=== PATIENT | female | born 1970 | race Caucasian/White ===

== ENCOUNTER 2017-07-11 17:54 | Emergency (ER) | payer SELFPAY ==
[2017-07-11] MEDS ORDERED: IPRATROPIUM/ALBUTEROL 0.5-2.5 MG/3 ML AMPUL NEB ONE (18:52)
[2017-07-11] MEDS ORDERED: METHYLPREDNISOLONE INJ 125 MG/2 ML SDV IM ONE (18:52)
--- NOTE | 2017-07-11 18:59 | ER Document Report ---
ED Respiratory Problem - General Chief Complaint: Cough, congestion, dizzy Stated Complaint: SHORTNESS OF BREATH Time Seen by Provider: 07/11/17 18:44 Mode of Arrival: Ambulatory Information source: Patient Notes: 46-year-old female presents to ED for cough congestion shortness of breath that is progressively gotten worse over the last month. She states she has been using her inhaler and nebulizer but does not have any steroids at home and the nebulizer inhalers are not helping. She states she has developed chest pain over the last week with feeling of dizziness feel like she is going to blackout. She states she has bronchitis frequently she does have a heart murmur. She states she had her heart has felt like it is jumping in throbbing and flip flopping like it does when she has anxiety attacks but she has not had anxiety. She speaks in clear complete sentences while she is telling me she cannot speak. Her lungs are minimally just managed with very faint wheezes. She does have good breath sounds. TRAVEL OUTSIDE OF THE [place] IN LAST 30 DAYS: No - HPI Patient complains to provider of: Short of breath Onset: Other - Month Duration: Continuous Initiating Event: URI Quality of pain: Achy, Sharp Severity: Severe Pain Level: 5 Context: Hx asthma, Smoker Short of Breath: Mild Chest pain/discomfort: Tightness Cough: Nonproductive Sputum amount: None At home treatment: Bronchodilators Associated symptoms: Chest pain/discomfort, Congestion, Cough, Runny nose, Sinus pain/pressure, Short of breath Similar symptoms previously: Yes - Related Data Allergies/Adverse Reactions: No Known Allergies Allergy (Verified 05/15/14 03:00) Past Medical History - General Information source: Patient - Social History Smoking Status: Current Some Day Smoker Cigarette use (# per day): Yes Chew tobacco use (# tins/day): No Frequency of alcohol use: Occasional Drug Abuse: Marijuana Lives with: Family Family History: Reviewed & Not Pertinent Patient has suicidal ideation: No Patient has homicidal ideation: No - Past Medical History Cardiac Medical History: Reports: None Pulmonary Medical History: Reports: Hx Asthma, Hx Bronchitis EENT Medical History: Reports: None Neurological Medical History: Reports: None Endocrine Medical History: Reports: Hx Hypothyroidism Renal/ Medical History: Reports: None Malignancy Medical History: Reports: None GI Medical History: Reports: Hx Ulcer - hypothyroidism Musculoskeltal Medical History: Reports Hx Musculoskeletal Deformity, Reports Hx Musculoskeletal Trauma Skin Medical History: Reports None Psychiatric Medical History: Reports: None Traumatic Medical History: Reports: None Infectious Medical History: Reports: None Past Surgical History: Reports: Hx Tubal Ligation - Immunizations Hx Diphtheria, Pertussis, Tetanus Vaccination: Yes Review of Systems - Review of Systems Constitutional: No symptoms reported EENT: Nose discharge, Sinus discharge Cardiovascular: No symptoms reported Respiratory: Cough, Short of breath Gastrointestinal: No symptoms reported Genitourinary: No symptoms reported Female Genitourinary: No symptoms reported Musculoskeletal: No symptoms reported Skin: No symptoms reported Hematologic/Lymphatic: No symptoms reported Neurological/Psychological: No symptoms reported -: Yes All other systems reviewed and negative Physical Exam - Vital signs Vitals: Temp Pulse Resp BP Pulse Ox 98.2 F 76 18 149/101 H 98 07/11/17 17:57 07/11/17 17:57 07/11/17 17:57 07/11/17 17:57 07/11/17 17:57 Interpretation: Normal - General General appearance: Appears well, Alert - HEENT Head: Normocephalic, Atraumatic Eyes: Normal Pupils: PERRL Ears: Normal External canal: Normal Tympanic membrane: Normal Sinus: Normal Nasal: Purulent discharge, Swelling Mouth/Lips: Normal Pharynx: Post nasal drainage Neck: Normal - Respiratory Respiratory status: No respiratory distress Chest status: Nontender Breath sounds: Decreased air movement, Wheezing Chest palpation: Normal - Cardiovascular Rhythm: Regular Heart sounds: Normal auscultation Murmur: No - Abdominal Inspection: Normal Distension: No distension Bowel sounds: Normal Tenderness: Nontender Organomegaly: No organomegaly - Back Back: Normal, Nontender - Extremities General upper extremity: Normal inspection, Nontender, Normal color, Normal ROM , Normal temperature General lower extremity: Normal inspection, Nontender, Normal color, Normal ROM , Normal temperature, Normal weight bearing. No: Medina's sign - Neurological Neuro grossly intact: Yes Cognition: Normal Orientation: AAOx4 [place] Coma Scale Eye Opening: Spontaneous [place] Coma Scale Verbal: Oriented [place] Coma Scale Motor: Obeys Commands [place] Coma Scale Total: 15 Speech: Normal Motor strength normal: LUE, RUE, LLE, RLE Sensory: Normal - Psychological Associated symptoms: Normal affect, Normal mood - Skin Skin Temperature: Warm Skin Moisture: Dry Skin Color: Normal Course - Re-evaluation Re-evalutation: 07/11/17 19:51 When I went to reassess the patient to see if she was ready to go home, she stated she was just getting her first nebulized treatment and was getting her steroid shot at that time. Will reassess patient in 30 minutes. 07/11/17 20:19 Lungs much clearer at this time. Patient able to take deep breath states she feels much better at this time. She states she is ready to go home and go to sleep. I suggested patient take some Benadryl to help her to go to sleep due to the steroids and breathing treatments. Patient to follow-up with her primary doctor. Patient will be discharged home with prescription for prednisone Patient instructed to continue taking her nebulizer and inhaler treatments as ordered. - Vital Signs Vital signs: Temp Pulse Resp BP Pulse Ox 98.1 F 74 18 118/68 97 07/11/17 20:26 07/11/17 20:26 07/11/17 20:26 07/11/17 20:26 07/11/17 20:26 - Diagnostic Test Radiology reviewed: Image reviewed, Reports reviewed Discharge - Discharge Clinical Impression: Bronchitis Upper respiratory infection Qualifiers: URI type: unspecified URI Qualified Code(s): J06.9 - Acute upper respiratory infection, unspecified Condition: Stable Disposition: HOME, SELF-CARE Instructions: Family Physicians / Practices Additional Instructions: UPPER RESPIRATORY ILLNESS: You have a viral infection of the respiratory passages -- a "cold." This common infection causes nasal congestion, drainage, and often sore throat and cough. It is highly contagious. The disease usually lasts about 10 to 14 days. There is no "cure" for the viral infection -- it must run its course. If there is a complication, such as bacterial infection in the nose, sinuses, middle ear, or bronchial tubes, antibiotics may be required. The antibiotics won't affect the virus. Drink plenty of fluids. A humidifier may help. An expectorant medication or decongestant may make you more comfortable. Use acetaminophen or ibuprofen for fever or aches. See the doctor if fever persists over two days, if there is any significant worsening of your symptoms, or if you simply fail to improve as expected. BRONCHOSPASM: You have tightness in the bronchial tubes, called bronchospasm. This often occurs with bronchial infections. Allergies, inhaled chemicals, and polluted or cold air can also provoke bronchospasm. It's more likely in patients with asthma in the family. Emergency treatment of bronchospasm may include adrenaline shots or bronchodilator aerosol. You may feel lightheaded and have a rapid pulse for an hour or two. Rest and get plenty of fluids. At home, we'll treat you with a bronchodilator inhaler. Antibiotics and corticosteroids may be required for some patients. Until you recover, avoid chemical fumes, dusts, pollens, and exercising in very cold or dry air. If you smoke, stop now!! If you develop a fever, increased wheezing, chest pain, or severe shortness of breath, you should contact the doctor immediately. INHALED BRONCHODILATORS: You have received a treatment of and/or prescription for an inhaled bronchodilator -- a medication which stimulates the airways in the lung to dilate. This improves the flow of air in asthma, bronchitis, and emphysema. These medicines have some similarity to adrenaline, and can cause similar side effects: shakiness, racing heart, and a sense of nervousness. These side effects decrease with time. Contact your doctor if these side effects are severe. Do not over-use the medicine. Too-frequent use of the inhaler may make it ineffective. Call your doctor if the inhaler is not controlling your symptoms at the prescribed doses. STEROID MEDICATION: You have been given an injection of or oral medicine of the cortisone/ steroid class. This medication is used to control inflammation or allergy. Mehul t is usually only given for a short period of time, until the acute process subsides. There are usually no side effects from short-term use of cortisone-like medications. Some persons feel an increased sense of well-being and are not sleepy at bedtime. Long-term use of cortisone medications is best avoided, unless required for a severe condition. If your condition does not remit, or relapses after the course of corticosteroid medication, you should consult your physician. USE OF ACETAMINOPHEN (Tylenol): Acetaminophen may be taken for pain relief or fever control. It's much safer than aspirin, offering a wider range of "safe" dosages. It is safe during . Some brand names are Tylenol, Panadol, Datril, Anacin 3, Tempra, and Liquiprin. Acetaminophen can be repeated every four hours. The following are maximum recommended dosages: >89 pounds or adults 650 mg to 900 mg Acetaminophen can be repeated every four hours. Maximum dose not to exceed 4000 mg a day. SMOKING: If you smoke, you should stop smoking. The tar and chemicals in cigarette smoke are harmful. Smoking has been shown to cause: emphysema chronic bronchitis lung cancer mouth and throat cancer stomach and pancreas cancer premature aging defects In addition, smoking increases ear and lung infections in children of smokers. FOLLOW-UP CARE: If you have been referred to a physician for follow-up care, call the physician s office for an appointment as you were instructed or within the next two days. If you experience worsening or a significant change in your symptoms, notify the physician immediately or return to the Emergency Department at any time for re-evaluation. Prescriptions: Prednisone [Sterapred Ds] 1 pkg PO ASDIR PRN 12 Days [email or web address] PRN Reason: Forms: Elevated Blood Pressure, Smoking Cessation Education, Return to Work
--- NOTE | 2017-07-11 19:40 | RADIOLOGY REPORT (SQ) ---
EXAM DESCRIPTION: CHEST PA/LAT COMPLETED DATE/TIME: 07/11/2017 7:19 pm REASON FOR STUDY: cough congestion COMPARISON: January 2014 EXAM PARAMETERS: NUMBER OF VIEWS: two views TECHNIQUE: Digital Frontal and Lateral radiographic views of the chest acquired. RADIATION DOSE: NA LIMITATIONS: none FINDINGS: LUNGS AND PLEURA: No opacities, masses or pneumothorax. No pleural effusion. MEDIASTINUM AND HILAR STRUCTURES: No masses or contour abnormalities. HEART AND VASCULAR STRUCTURES: Heart normal size. No evidence for failure. BONES: No acute findings. HARDWARE: None in the chest. OTHER: No other significant finding. IMPRESSION: NO SIGNIFICANT RADIOGRAPHIC FINDING IN THE CHEST. TECHNICAL DOCUMENTATION: JOB ID: [id number] [employer]- All Rights Reserved
[2017-07-11] MEDS: ALBUTEROL SULFATE 0.083% NEB 2.5 MG/3 ML AMPUL NEB SCH ×2 (19:51→20:05)
[2017-07-11 20:27] VITALS: BP 118/68
--- NOTE | 2017-07-11 23:22 | EKG REPORT ---
SEVERITY:- BORDERLINE ECG - SINUS RHYTHM CONSIDER ANTERIOR INFARCT : Confirmed by: Chasity Lo 11-Jul-2017 23:21:57
== END 2017-07-11 20:37 | disposition home or self-care (01) ==
LOC: ER 17:54
DX: J40 Bronchitis, not specified as acute or chronic (principal); J06.9 Acute upper respiratory infection, unspecified; F17.210 Nicotine dependence, cigarettes, uncomplicated; E03.9 Hypothyroidism, unspecified; Z98.51 Tubal ligation status
CPT/HCPCS: 93005; 94640 ×2; 99285; 96374; 71020; 93010; J2930; J7620

== ENCOUNTER 2017-11-07 18:30 | Emergency (ER) | payer SELFPAY ==
[2017-11-07] MEDS ORDERED: IBUPROFEN 600 MG TABLET PO ONE (20:33)
--- NOTE | 2017-11-07 20:35 | ER Document Report ---
ED Skin Rash/Insect Bite/Abscs - General Chief Complaint: Abscess Stated Complaint: ABSCESS/GROIN AREA Time Seen by Provider: 11/07/17 20:25 Mode of Arrival: Ambulatory Information source: Patient TRAVEL OUTSIDE OF THE [place] IN LAST 30 DAYS: No - HPI Patient complains to provider of: Tender/swollen area Onset: Other - 2 DAYS Quality of pain: Sharp Notes: Patient is here with complaints of possible abscess to the left groin area. She states been present for the last 2 days and is getting larger and more painful. She has a prior history of abscess. This feels similar to prior abscess she has had. She denies fevers. She denies vomiting or diarrhea. She states that she has had some mild nausea. She denies any known history of diabetes. She denies any other rashes. She denies any chest pain or difficulty breathing. No abdominal pain. She has no other significant complaints at this time. - Related Data Allergies/Adverse Reactions: No Known Allergies Allergy (Verified 11/07/17 18:34) Past Medical History - Social History Smoking Status: Current Every Day Smoker Family History: Reviewed & Not Pertinent Pulmonary Medical History: Reports: Hx Asthma, Hx Bronchitis Endocrine Medical History: Reports: Hx Hypothyroidism Renal/ Medical History: Denies: Hx Peritoneal Dialysis GI Medical History: Reports: Hx Ulcer - hypothyroidism Musculoskeltal Medical History: Reports Hx Musculoskeletal Deformity, Reports Hx Musculoskeletal Trauma Past Surgical History: Reports: Hx Tubal Ligation - Immunizations Hx Diphtheria, Pertussis, Tetanus Vaccination: Yes Review of Systems - Review of Systems -: Yes All other systems reviewed and negative Physical Exam - Vital signs Vitals: Temp Pulse Resp BP Pulse Ox 98.7 F 59 L 20 128/65 H 97 11/07/17 19:00 11/07/17 19:00 11/07/17 19:00 11/07/17 19:00 11/07/17 19:00 - Notes Notes: GENERAL: alert, cooperative, nontoxic, no distress. HEAD: normocephalic, atraumatic EYES: conjunctiva pink without discharge, no external redness or swelling. EARS: no external swelling, no external redness NOSE: atraumatic, no external swelling MOUTH/THROAT: mucous membranes moist and pink NECK: soft, supple, full range of motion, no meningismus. CHEST: no distress, lungs clear and equal throughout. No wheezing, rales, rhonchi. CARDIAC: regular rate and rhythm, no murmur, normal capillary refill, normal pulses. BACK: full range of motion, no CVA tenderness. EXTREMITIES: full range of motion of all extremities. No redness, no swelling. NEURO: alert and oriented 3, no focal deficits, full range of motion of all extremities. PYSCH: appropriate mood, affect. Patient is cooperative. SKIN: pink, warm, dry, no rash. 3 cm fluctuant abscess to the left groin just between the thigh and the labia majora. This is not a labial abscess. Mild overlying redness. Tenderness to palpation. No drainage. No significant surrounding erythema. Course - Re-evaluation Re-evalutation: 11/07/17 21:21 The patient is nontoxic appearing with stable vitals. The patient is here with an abscess to the left inguinal area for the last 2 days. No diabetes, no fever. There is a fluctuant abscess in this area with no significant redness or cellulitis. They will perform an I&D with success. Patient tolerated this well. She will be discharged home with a prescription for Bactrim. Apply warm compresses to sore area. Follow-up for increasing pain, fever, redness, persistent vomiting or for any further concerns. The patient declined wanting a prescription for pain medication, she states she will take Tylenol or Motrin if she needs it. The patient is noted to have elevated blood pressure during today's emergency department visit. The patient was informed of this finding. The patient was instructed that this may be related to pre-hypertension and requires further evaluation with a primary care provider. The patient has no hypertensive symptoms at this time. The patient's emergency department workup and current diagnosis were explained to the patient and or family. Follow-up instructions were provided. Medications if prescribed were discussed. Instructions for when to return to the emergency department including specific worrisome symptoms were discussed with the patient and/or family. - Vital Signs Vital signs: Temp Pulse Resp BP Pulse Ox 98.7 F 59 L 20 128/65 H 97 11/07/17 19:00 11/07/17 19:00 11/07/17 19:00 11/07/17 19:00 11/07/17 19:00 Procedures - Incision and Drainage Left groin Type: Simple Anesthetic type: 1% Lidocaine Blade size: 11 I&D procedure: Shurclens applied, Sterile dressing applied, Other - Loculations broke up with hemostats Incision Method: Incision made by scalpel Amount/type of drainage: Moderate amount of purulent/bloody drainage. Discharge - Discharge Clinical Impression: Abscess of groin, left Condition: Stable Disposition: HOME, SELF-CARE Instructions: Abscess ([facility]), Trimethoprim-Sulfa ([facility]), Post Incision and Drainage Additional Instructions: Take medications as prescribed. Take Tylenol and Motrin if needed for pain. Apply warm compresses or soak in warm water frequently. Follow-up if not improving in the next 2 days, sooner for increasing pain, fever, redness, drainage, persistent vomiting, or for any further concerns. Your blood pressure was elevated during today's visit. Have this rechecked with your doctor. Prescriptions: Sulfamethoxazole/Trimethoprim [Bactrim Ds Tablet] 1 each PO BID #20 tablet Forms: Elevated Blood Pressure, Smoking Cessation Education Referrals: [facility] [Provider Group] - Follow up as needed
[2017-11-07 21:45] VITALS: BP 115/77
== END 2017-11-07 21:42 | disposition home or self-care (01) ==
LOC: ER 18:30
PROC: 0H97XZZ Drainage of Abdomen Skin, External Approach (ICD-10-PCS; principal; 2017-11-07)
DX: L02.214 Cutaneous abscess of groin (principal); F17.200 Nicotine dependence, unspecified, uncomplicated
CPT/HCPCS: 99283

== ENCOUNTER 2018-08-07 16:46 | Emergency (ER) | payer SELFPAY ==
[2018-08-07 17:03] VITALS: BP 142/86
[2018-08-07] MEDS ORDERED: IBUPROFEN 800 MG TABLET PO ONE (18:21)
[2018-08-07] MEDS ORDERED: DEXAMETHASONE 4 MG TABLET PO ONE (18:21)
--- NOTE | 2018-08-07 18:21 | ER Document Report ---
ED Neck/Back Problem - General Chief Complaint: Low Back Pain Stated Complaint: BACK/NECK/SHOULDER PAIN Time Seen by Provider: 08/07/18 18:01 Mode of Arrival: Ambulatory Information source: Patient Notes: 47-year-old female presented to ED for complaint of neck and back pain that worsened last night. She states she has a history of problems with her neck and back. She states she was seen by sports medicine and told that she needed MRIs. Patient states she bent over yesterday and now it is painful to sit or stand or lay down comfortably. Patient is alert and oriented respirations regular and unlabored speaking in full sentences. Patient states she has a long history of chronic pain to her back and shoulders. Patient states she has not fallen and she has not been seen by eye doctor except for sports medicine in 10 years. Patient states she has frequent numbness to her legs but she is not had any change in bowel or bladder function. TRAVEL OUTSIDE OF THE [place] IN LAST 30 DAYS: No - Related Data Allergies/Adverse Reactions: No Known Allergies Allergy (Verified 11/07/17 18:34) Past Medical History - General Information source: Patient - Social History Smoking Status: Current Every Day Smoker Cigarette use (# per day): Yes - Pack per day Chew tobacco use (# tins/day): No Smoking Education Provided: Yes - 4 minutes Frequency of alcohol use: Social Drug Abuse: Marijuana Family History: Reviewed & Not Pertinent Patient has suicidal ideation: No Patient has homicidal ideation: No - Past Medical History Cardiac Medical History: Reports: None Pulmonary Medical History: Reports: Hx Asthma, Hx Bronchitis EENT Medical History: Reports: None Neurological Medical History: Reports: None Endocrine Medical History: Reports: Hx Hypothyroidism Renal/ Medical History: Reports: None Malignancy Medical History: Reports: None GI Medical History: Reports: Hx Ulcer - hypothyroidism Musculoskeletal Medical History: Reports Hx Arthritis, Reports Hx Musculoskeletal Deformity, Reports Hx Musculoskeletal Trauma Skin Medical History: Reports None Psychiatric Medical History: Reports: None Infectious Medical History: Reports: None Past Surgical History: Reports: Hx Tubal Ligation - Immunizations Hx Diphtheria, Pertussis, Tetanus Vaccination: No Review of Systems - Review of Systems Constitutional: No symptoms reported EENT: No symptoms reported Cardiovascular: No symptoms reported Respiratory: No symptoms reported Gastrointestinal: No symptoms reported Genitourinary: No symptoms reported Female Genitourinary: No symptoms reported Musculoskeletal: Back pain, Joint pain, Muscle pain, Muscle stiffness. denies: Joint swelling Skin: No symptoms reported Hematologic/Lymphatic: No symptoms reported Neurological/Psychological: No symptoms reported -: Yes All other systems reviewed and negative Physical Exam - Vital signs Vitals: Temp Pulse Resp BP Pulse Ox 98.0 F 72 18 142/86 H 99 08/07/18 16:54 18 16:54 08/07/18 16:54 08/07/18 16:54 08/07/18 16:54 Interpretation: Normal - General General appearance: Appears well, Alert - HEENT Head: Normocephalic, Atraumatic Eyes: Normal Pupils: PERRL - Respiratory Respiratory status: No respiratory distress Chest status: Nontender Breath sounds: Normal Chest palpation: Normal - Cardiovascular Rhythm: Regular Heart sounds: Normal auscultation Murmur: No - Abdominal Inspection: Normal Distension: No distension Bowel sounds: Normal Tenderness: Nontender Organomegaly: No organomegaly - Back Back: Normal, Tender. No: Vertebra tenderness - Extremities General upper extremity: Normal inspection, Nontender, Normal color, Normal ROM , Normal temperature General lower extremity: Normal inspection, Nontender, Normal color, Normal ROM , Normal temperature, Normal weight bearing. No: Medina's sign - Neurological Neuro grossly intact: Yes Cognition: Normal Orientation: AAOx4 Nadya Coma Scale Eye Opening: Spontaneous Nadya Coma Scale Verbal: Oriented Weidman Coma Scale Motor: Obeys Commands Weidman Coma Scale Total: 15 Speech: Normal Motor strength normal: LUE, RUE, LLE, RLE Sensory: Normal - Psychological Associated symptoms: Normal affect, Normal mood - Skin Skin Temperature: Warm Skin Moisture: Dry Skin Color: Normal Course - Re-evaluation Re-evalutation: 08/07/18 22:03 Discussed x-rays with patient. There were no changes to the x-rays. Patient was discharged home with instructions to follow-up with her primary doctor and with a back specialist for her chronic pain. Patient was given instructions on ibuprofen and exercises. - Vital Signs Vital signs: Temp Pulse Resp BP Pulse Ox 98.0 F 72 18 142/86 H 99 08/07/18 16:54 08/07/18 16:54 08/07/18 16:54 08/07/18 16:54 08/07/18 16:54 - Diagnostic Test Radiology reviewed: Image reviewed, Reports reviewed Discharge - Discharge Clinical Impression: Chronic back pain greater than 3 months duration Right shoulder pain Qualifiers: Chronicity: unspecified Qualified Code(s): M25.511 - Pain in right shoulder Condition: Stable Disposition: HOME, SELF-CARE Additional Instructions: Chronic Back Pain Chronic back pain (pain persisting longer than three months) is a common problem. A medical evaluation can look for herniated disc, arthritis, osteoporosis, tumors, and infections. But at least half the time, there's no obvious treatable cause. Anxiety and depression tend to worsen back pain. Ibuprofen or other anti-inflammatory medicine can help. A heating pad, used for 15-20 minutes at a time, can ease pain. For this type of back pain, narcotic medicines should be avoided. Muscle relaxers are rarely helpful unless you're having spasms. Activity is important. Find an aerobic exercise program that your back can tolerate. Too much rest makes back pain worse. Specific back exercises are usually prescribed to strengthen the back and abdominal muscles. Often, a physical therapist can help. Avoid heavy lifting, working while bent over, or standing with both knees straight. Most back pain patients do better with a firm mattress. If new symptoms of a "herniated disc" (radiation of pain, numbness, or tingling down the back of the leg or weakness in the leg) occur, you should be re-examined. Chronic Pain Control Stress, inactivity, and depression make pain more severe regardless of the cause of the pain. Stress and poor physical condition can cause pain such as headaches and backache. Relaxation: Rest in a quiet place with your eyes closed for 20 minutes twice daily. Concentrate on a pleasant image, or simply "feel" your breathing. Clear your mind. Stress management: Deal with your "stressors." Either take action, or eliminate the stressor from your life. Don't let things hang over you. Accept those things you can't change. Nutrition: Eat small, balanced meals -- don't skip, don't overeat. Meals should be high-carbohydrate, low-sugar, low-fat. Exercise: Exercise helps painful conditions and eases stress. Get 30 minutes of moderate exercise, five days a week. Do an activity that does not flare your pain. Precautions: Pain which continues to disrupt daily activities, or which changes in nature, requires a medical evaluation. Pain Clinic referral is available. We do not manage chronic pain in the Emergency Department. We will try to appropriately help you through an acute flare of your chronic painful condition , but for on-going chronic pain that does not improve, you will need to see your private doctor or paint trimmer pipe bowls. We do not provide repeated medication management of chronic painful conditions. If you wish, we can provide the name of local pain management physicians. MUSCLE RELAXERS: Have offered you a prescription of steroids anti-inflammatories , and muscle relaxers and you have stated you did not want a prescription as they do not help you. Muscle relaxing medications are usually prescribed for acute muscle spasm or injury to the neck and back. They are often combined with antiinflammatory pain medication for increased relief. You may stop the muscle relaxer when the pain and stiffness have improved. Start the medication again if spasms recur. Muscle relaxers may cause drowsiness, especially with the first dose. Do not operate machinery or drive while under the effects of the medication. Most muscle relaxers last up to 24 hours. Do not combine the medication with alcohol. ICE PACKS: Apply ice packs frequently against the painful area. Many different schedules are recommended, such as "20 minutes on, 20 minutes off" or "one hour ice, two hours rest." If you need to work, you may need to go longer between ice treatments. You should plan to have the area ice packed AT LEAST one fourth of the time. The ice should be applied over the wrap, tape, or splint, or over a layer of cloth -- not directly against the skin. Some ice bags have a built-in cloth and can be put directly on the skin. WARM PACKS: After approximately two days, apply gentle heat (such as a heating pad or hot water bottle) for about 20 to 30 minutes about every two hours -- at least four times daily. Warmth and elevation will help you make a more rapid recovery , and will ease the pain considerably. Do not use HOT heat, and never apply heat for longer than 30 minutes. The continuous heat can invisibly damage skin and muscles -- even when no burn is seen on the surface. Damaged muscles can make you MORE sore. Stretching Exercises for the Back The physician has recommended that you begin stretching exercises for your back. These are often used even while the back is painful. However, you should notify the physician if the activities seem to increase your pain. PELVIC TILT: Lie flat on your back with knees bent. Tighten your stomach and buttock muscles so it flattens your lower back against the floor. Hold 10 seconds. Repeat 10 times, twice daily. KNEE RAISE: Lying on the back with knees bent, raise one knee to your chest, then the other. Hold both knees against the chest 10 seconds, then lower one knee at a time. Repeat 10 times, twice daily. PARTIAL TRUNK RAISE: Lie face down, arms at your sides. Keeping your waist on the floor, use your arms raise your chest up. Support yourself on your elbows for 30 seconds. Repeat twice daily, increasing the time to two minutes as you recover. FOLLOW-UP CARE: If you have been referred to a physician for follow-up care, call the physician s office for an appointment as you were instructed or within the next two days. If you experience worsening or a significant change in your symptoms, notify the physician immediately or return to the Emergency Department at any time for re-evaluation. These follow-up with [facility] and get a referral to the back specialist in [facility]. Forms: Elevated Blood Pressure, Smoking Cessation Education
--- NOTE | 2018-08-07 18:52 | RADIOLOGY REPORT (SQ) ---
EXAM DESCRIPTION: SHOULDER RIGHT 2 OR MORE VIEWS COMPLETED DATE/TIME: 08/07/2018 6:40 pm REASON FOR STUDY: severe pain chronic, worse since yesterday COMPARISON: October 2013 NUMBER OF VIEWS: Three views. TECHNIQUE: Internal rotation, external rotation, and Y view images acquired of the right shoulder. LIMITATIONS: None. FINDINGS: MINERALIZATION: Normal. BONES: No acute fracture or dislocation. No worrisome bone lesions. JOINTS: No dislocation. VISUALIZED LUNGS AND RIBS: No pneumothorax. No rib fracture. SOFT TISSUES: No radiopaque foreign body. OTHER: No other significant finding. IMPRESSION: NEGATIVE STUDY OF THE RIGHT SHOULDER. NO RADIOGRAPHIC EVIDENCE OF ACUTE INJURY. TECHNICAL DOCUMENTATION: JOB ID: [id number] [employer]- All Rights Reserved Reading location - IP/workstation name: [email or web address]
--- NOTE | 2018-08-07 18:55 | RADIOLOGY REPORT (SQ) ---
EXAM DESCRIPTION: T SPINE AP/LAT COMPLETED DATE/TIME: 08/07/2018 6:40 pm REASON FOR STUDY: severe pain chronic, worse since yesterday COMPARISON: None. NUMBER OF VIEWS: Two views. TECHNIQUE: AP and lateral radiographic images acquired of the thoracic spine. LIMITATIONS: None. FINDINGS: MINERALIZATION: Normal. ALIGNMENT: Normal. No scoliosis. VERTEBRAE: No fracture or bone lesion. Maintained height, normal segmentation. DISCS: No significant loss of height or significant narrowing. No large osteophytes. HARDWARE: None in the spine. MEDIASTINUM AND SOFT TISSUES: Normal heart size and aortic contour. No soft tissue abnormality. VISUALIZED LUNG CRUZ: Clear. OTHER: No other significant finding. IMPRESSION: NO SIGNIFICANT RADIOGRAPHIC FINDING IN THE THORACIC SPINE. TECHNICAL DOCUMENTATION: JOB ID: [id number] [employer]- All Rights Reserved Reading location - IP/workstation name: [email or web address]
--- NOTE | 2018-08-07 19:00 | RADIOLOGY REPORT (SQ) ---
EXAM DESCRIPTION: L SPINE WHOLE COMPLETED DATE/TIME: 08/07/2018 6:40 pm REASON FOR STUDY: severe pain chronic, worse since yesterday COMPARISON: None. NUMBER OF VIEWS: Five views including obliques. TECHNIQUE: AP, lateral, oblique, and sacral radiographic images acquired of the lumbar spine. LIMITATIONS: None. FINDINGS: MINERALIZATION: Normal. SEGMENTATION: Normal. No transitional anatomy. ALIGNMENT: Normal. VERTEBRAE: Maintained height. No fracture or worrisome bone lesion. DISCS: Mild disc space narrowing with small osteophytes. POSTERIOR ELEMENTS: Pedicles and facets are intact. No pars defect or posterior arch defects. HARDWARE: None in the spine. PARASPINAL SOFT TISSUES: Normal. PELVIS: Intact as visualized. No fractures or worrisome bone lesions. SI joints intact. OTHER: No other significant finding. IMPRESSION: MILD DEGENERATIVE CHANGES. NO ACUTE FINDINGS. TECHNICAL DOCUMENTATION: JOB ID: [id number] [employer]- All Rights Reserved Reading location - IP/workstation name: [email or web address]
== END 2018-08-07 19:11 | disposition home or self-care (01) ==
LOC: ER 16:46
DX: G89.29 Other chronic pain (principal); M54.5 Low back pain; M25.511 Pain in right shoulder; F17.210 Nicotine dependence, cigarettes, uncomplicated; Z98.51 Tubal ligation status
CPT/HCPCS: 72070; 72110; 99283

== ENCOUNTER 2018-11-27 00:13 | Emergency (ER) | payer SELFPAY ==
--- NOTE | 2018-11-27 03:41 | ER Document Report ---
ED General - General Chief Complaint: Vaginal Pain Stated Complaint: PELVIC PAIN Time Seen by Provider: 11/27/18 01:41 Notes: Patient is a 48-year-old female with a past history of hypothyroidism, presents due to concerns of uterine prolapse. Patient noticed that a "ball" was protruding out of her vagina yesterday. She states that she was up, standing at work all day today and this was causing increasing pain to her suprapubic region. She describes this as being a throbbing, cramping, aching discomfort. Nothing improved or worsen the discomfort. Described as being moderate to severe in intensity. Gradual in onset and worsening since that time. No history of similar symptoms in the past. 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 Denies any nausea, vomiting, diarrhea, fever or constitutional symptoms. She has had 2 children via spontaneous vaginal delivery but no history of other abdominal surgeries. TRAVEL OUTSIDE OF THE [place] IN LAST 30 DAYS: No - Related Data Allergies/Adverse Reactions: No Known Allergies Allergy (Verified 11/07/17 18:34) Past Medical History - General Information source: Patient - Social History Smoking Status: Current Every Day Smoker Chew tobacco use (# tins/day): No Frequency of alcohol use: Occasional Drug Abuse: Marijuana Lives with: Family Family History: Reviewed & Not Pertinent Patient has suicidal ideation: No Patient has homicidal ideation: No Pulmonary Medical History: Reports: Hx Asthma, Hx Bronchitis Endocrine Medical History: Reports: Hx Hypothyroidism Renal/ Medical History: Denies: Hx Peritoneal Dialysis GI Medical History: Reports: Hx Ulcer - hypothyroidism Musculoskeletal Medical History: Reports Hx Arthritis, Reports Hx Musculoskeletal Deformity, Reports Hx Musculoskeletal Trauma Past Surgical History: Reports: Hx Tubal Ligation - Immunizations Hx Diphtheria, Pertussis, Tetanus Vaccination: No Review of Systems - Review of Systems Notes: Constitutional: Negative for fever. HENT: Negative for sore throat. Eyes: Negative for visual changes. Cardiovascular: Negative for chest pain. Respiratory: Negative for shortness of breath. Gastrointestinal: Positive for lower abdominal cramping Genitourinary: Negative for dysuria. Positive vaginal discharge and concern of uterine prolapse Musculoskeletal: Negative for back pain. Skin: Negative for rash. Neurological: Negative for headaches, weakness or numbness. 10 point ROS negative except as marked above and in HPI. Physical Exam - Vital signs Vitals: Temp Pulse Resp BP Pulse Ox 98.0 F 70 22 H 139/70 H 98 11/27/18 00:21 11/27/18 00:21 11/27/18 00:21 11/27/18 00:21 11/27/18 00:21 Interpretation: Normal Notes: PHYSICAL EXAMINATION: GENERAL: Well-appearing, well-nourished and in no acute distress. HEAD: Atraumatic, normocephalic. EYES: Pupils equal round and reactive to light, extraocular movements intact, sclera anicteric, conjunctiva are normal. ENT: nares patent, oropharynx clear without exudates. Moist mucous membranes. NECK: Normal range of motion, supple without lymphadenopathy LUNGS: Breath sounds clear to auscultation bilaterally and equal. No wheezes rales or rhonchi. HEART: Regular rate and rhythm without murmurs ABDOMEN: Soft, nontender, normoactive bowel sounds. No guarding, no rebound. No masses appreciated. : No evidence of uterine prolapse on initial external exam. Speculum examination without copious amount of discharge although scant what appears to be physiologic discharge home from the cervical office. No cervical lesions. No cervical motion tenderness, adnexal tenderness or suprapubic tenderness on palpation. EXTREMITIES: Normal range of motion, no pitting or edema. No cyanosis. NEUROLOGICAL: No focal neurological deficits. Moves all extremities spontaneously and on command. PSYCH: Normal mood, normal affect. SKIN: Warm, Dry, normal turgor, no rashes or lesions noted. Course - Re-evaluation Re-evalutation: 11/27/18 03:39 Patient presents with concerns of uterine prolapse. Although there is not an obvious prolapse the uterus at the time of my assessment to give patient's report of seeing a ball coming out of her vagina and having pain with standing or bearing down is consistent with this diagnosis. I informed the patient that she needs to follow-up with [employer] IN[employer] regarding these concerns. Urinalysis, wet prep unremarkable. GC chlamydia pending. Very low clinical suspicion for ovarian torsion, pelvic inflammatory disease, appendicitis, or any alternative life threatening or surgical condition at this time. At this time will discharge with return precautions and follow-up recommendations. Verbal discharge instructions given a the bedside and opportunity for questions given. Medication warnings reviewed. Patient is in agreement with this plan and has verbalized understanding of return precautions and the need for primary care follow-up in the next 24-72 hours. - Vital Signs Vital signs: Temp Pulse Resp BP Pulse Ox 98.0 F 70 22 H 139/70 H 98 11/27/18 00:21 11/27/18 00:21 11/27/18 00:21 11/27/18 00:21 11/27/18 00:21 - Laboratory Laboratory results interpreted by me: 11/27/18 03:02 Urine Blood SMALL H Discharge - Discharge Clinical Impression: Pelvic cramping, Uterine prolapse, Vaginal discharge Condition: Good Disposition: HOME, SELF-CARE Additional Instructions: You pelvic swabs are normal. Please follow-up with seo team lead at your earliest ability. Return for worsening pain, vomiting, fever, or any other symptoms that are concerning to you.
[2018-11-27 03:46] LABS: APPEARANCE,URINE CLEAR; BILIRUBIN,URINE NEGATIVE (NEGATIVE); COLOR,URINE STRAW; GLUCOSE, URINE NEGATIVE (NEGATIVE); KETONES,URINE NEGATIVE (NEGATIVE); LEUKOCYTE ESTERASE,URINE NEGATIVE (NEGATIVE); NITRITE,URINE NEGATIVE (NEGATIVE); PROTEIN,URINE NEGATIVE (NEGATIVE); URINE SPECIFIC GRAVITY 1.006; UROBILINOGEN,URINE NEGATIVE mg/dL (<2.0)
[2018-11-27 03:50] LABS: RBCS (WET MOUNT) NO RBCS SEEN; T.VAGINALIS (WET MOUNT) NO TRICHOMONAS SEEN; WBCS (WET MOUNT) NO WBCS SEEN; YEAST (WET MOUNT) NO YEAST SEEN
[2018-11-27 05:15] VITALS: BP 135/78
[2018-11-27 06:59] LABS: CHLAM PCR NOT DETECTED (NOT DETECT); GON PCR NOT DETECTED (NOT DETECT)
== END 2018-11-27 04:50 | disposition home or self-care (01) ==
LOC: ER 00:13
DX: N81.4 Uterovaginal prolapse, unspecified (principal); N89.8 Other specified noninflammatory disorders of vagina; R10.2 Pelvic and perineal pain; F17.200 Nicotine dependence, unspecified, uncomplicated; F12.10 Cannabis abuse, uncomplicated; J45.909 Unspecified asthma, uncomplicated; Z98.51 Tubal ligation status
CPT/HCPCS: 81001; 87210; 87491; 87591; 99283

== ENCOUNTER 2020-03-28 22:41 | Emergency (ER) | payer SELFPAY ==
[2020-03-28 22:52] VITALS: BP 151/86
[2020-03-29] MEDS ORDERED: ACETAMINOPHEN 325 MG TABLET PO ONE (00:02)
--- NOTE | 2020-03-29 00:04 | ER Document Report ---
ED Medical Screen (RME) - General Chief Complaint: Abscess Stated Complaint: ABSCESS Time Seen by Provider: 03/29/20 00:00 Mode of Arrival: Ambulatory Information source: Patient Notes: HPI; 49-year-old female presents to the emergency room complaining of a possible ingrown hair to her left groin area for the past 7 to 10 days. States it is a recurring issue has had to have them lanced in the past. States tried popping it without relief. Denies any fevers. Denies any vaginal discharge. PE: Oriented x3. Mild distress noted. Lungs: Clear to auscultation without rales, rhonchi, wheezes. Heart: Regular rate and rhythm without murmurs rubs or gallops. Unable to evaluate abscess in triage. I have greeted and performed a rapid initial assessment of this patient. A comprehensive ED assessment and evaluation of the patient, analysis of test results and completion of the medical decision making process will be conducted by additional ED providers. I have specifically instructed the patient or family members with the patient to immediately return to any nursing staff should anything change in the patient's condition or with their chief complaint. TRAVEL OUTSIDE OF THE [place] IN LAST 30 DAYS: No - Related Data Allergies/Adverse Reactions: No Known Allergies Allergy (Verified 11/07/17 18:34) Past Medical History Pulmonary Medical History: Reports: Hx Asthma, Hx Bronchitis Endocrine Medical History: Reports: Hx Hypothyroidism Renal/ Medical History: Denies: Hx Peritoneal Dialysis GI Medical History: Reports: Hx Ulcer - hypothyroidism Musculoskeltal Medical History: Reports Hx Arthritis, Reports Hx Musculoskeletal Deformity, Reports Hx Musculoskeletal Trauma Past Surgical History: Reports: Hx Tubal Ligation - Immunizations Hx Diphtheria, Pertussis, Tetanus Vaccination: No Physical Exam - Vital signs Vitals: Temp Pulse Resp BP Pulse Ox 98.5 F 65 17 151/86 H 97 03/28/20 22:42 03/28/20 22:42 03/28/20 22:42 03/28/20 22:42 03/28/20 22:42 Course - Vital Signs Vital signs: Temp Pulse Resp BP Pulse Ox 98.5 F 65 17 151/86 H 97 03/28/20 22:42 03/28/20 22:42 03/28/20 22:42 03/28/20 22:42 03/28/20 22:42
== END 2020-03-29 01:41 | disposition left against medical advice (07) ==
LOC: ER 22:41
DX: L73.1 Pseudofolliculitis barbae (principal)
CPT/HCPCS: 99281